=== PATIENT | male | born 1990 | race Caucasian/White ===

== ENCOUNTER 2016-12-19 10:01 | Emergency (ER) | payer OTHER ==
[~2016-12-19] VITALS: Ht 195.6 cm; Wt 113.4 kg
[2016-12-19] MEDS ORDERED: ACETAMINOPHEN 325 MG TAB PO ONE (11:00)
--- NOTE | 2016-12-19 12:29 | REP ---
CT CERVICAL SPINE WITHOUT CONTRAST: HISTORY: Trauma. There is no acute fracture or subluxation. There is no disc bulge or herniation. The spinal canal and neural foramina are patent. The intervertebral discs are normal in height. IMPRESSION: There is no acute fracture or subluxation. Signed by Raji Weems MD 12/19/2016 12:25 P
--- NOTE | 2016-12-19 12:29 | REP ---
CT Head without contrast HISTORY: Trauma COMPARISON: None There is no intraparenchymal hemorrhage, acute infarct, mass or midline shift. The ventricular system is normal in appearance. There is no extra cerebral collection. There is no fracture. The visualized sinuses are clear. IMPRESSION: There is no intracranial lesion. Signed by Raji Weems MD 12/19/2016 12:03 P
[2016-12-19] MEDS ORDERED: KETOROLAC 30 MG/ML VIAL (J1885) IM ONE (12:30)
[2016-12-19 12:59] VITALS: BP 143/67
[2016-12-19] MEDS ORDERED: CYCL10TA PO (13:19)
[2016-12-19] MEDS ORDERED: IBUP80TA PO (13:19)
--- NOTE | 2016-12-19 13:21 | REP ---
RIGHT KNEE, FIVE VIEWS: HISTORY: Trauma. There is no acute fracture or dislocation. The joint spaces are normal in appearance. IMPRESSION: There is no acute fracture or dislocation. Signed by Raji Weems MD 12/19/2016 01:26 P
== END 2016-12-19 13:40 | disposition home or self-care (01) ==
LOC: EDBD 10:01 → M ED 11:26
DX: S80.812A Abrasion, left lower leg, initial encounter (principal); S80.01XA Contusion of right knee, initial encounter; V49.49XA Driver injured in collision with other motor vehicles in traffic accident, initial encounter; Y92.410 Unspecified street and highway as the place of occurrence of the external cause; Y93.89 Activity, other specified; Y99.8 Other external cause status; R04.0 Epistaxis; F17.210 Nicotine dependence, cigarettes, uncomplicated
CPT/HCPCS: 70450; 72125; 73564; 93041; 96372; 99284; J1885

== ENCOUNTER 2016-12-20 17:05 | Emergency (ER) | payer OTHER ==
[~2016-12-20] VITALS: Ht 182.9 cm; Wt 113.4 kg
[~2016-12-20 17:05] MED LIST: CYCL10TA PO; IBUP80TA PO
[2016-12-20 21:49] VITALS: BP 150/69
--- NOTE | 2016-12-21 10:13 | REP ---
LEFT KNEE SERIES: Five views. HISTORY: Injury in a fall. FINDINGS: Five views of the left knee demonstrate soft tissue swelling about the medial aspect of the knee. Bones and joints are unremarkable. No fracture or subluxation is seen. No evidence of joint effusion noted. IMPRESSION: Medial soft tissue swelling. No acute bony abnormality. Signed by Trey Ford MD 12/21/2016 04:39 P
== END 2016-12-20 22:14 | disposition home or self-care (01) ==
LOC: M ED 19:34
DX: S80.02XA Contusion of left knee, initial encounter (principal); S83.92XA Sprain of unspecified site of left knee, initial encounter; V49.9XXA Car occupant (driver) (passenger) injured in unspecified traffic accident, initial encounter; Y92.9 Unspecified place or not applicable; Y93.9 Activity, unspecified; Y99.9 Unspecified external cause status